=== PATIENT | female | born 1990 | race Hispanic/Latino ===

== ENCOUNTER 2017-10-19 13:46 | Inpatient (IN) | payer MEDICAID, OTHER ==
[~2017-10-19] VITALS: Ht 165.1 cm; Wt 65.3 kg
[2017-10-19 14:11] LABS: APPEARANCE,URINE Cloudy (CLEAR); BILIRUBIN,URINE Negative (NEGATIVE); COLOR,URINE Yellow (YELLOW); GLUCOSE, URINE (UA) Negative (NEGATIVE); KETONES,URINE Negative (NEGATIVE); LEUKOCYTE ESTERASE ,URINE Small (NEGATIVE); NITRATE,URINE Negative (NEGATIVE); OCCULT BLOOD,URINE Large (NEGATIVE); PH,URINE 5.5 (5.0-8.0); PROTEIN,URINE Trace (NEGATIVE); UROBILINOGEN,URINE 0.2 mg/dL (0.2-1.0)
[2017-10-19 14:15] LABS: BASOPHILS % (AUTO) 0.6 % (0.0-5.0); EOSINOPHILS % (AUTO) 2.7 % (0.0-8.0); HEMATOCRIT 43.7 % (36-48); LYMPHOCYTES % (AUTO) 29.2 % (21.0-51.0); MEAN CORPUSCULAR HEMOGLOBIN 28.2 pg (27.0-33.0); MEAN CORPUSCULAR HGB CONC 32.9 g/dL (32.0-36.0); MEAN CORPUSCULAR VOLUME 85.7 fL (79-99); MONOCYTES % (AUTO) 6.9 % (3.0-13.0); NEUTROPHILS % (AUTO) 60.6 % (40.0-77.0); PLATELET COUNT (AUTO) 233 K/uL (130-400); RED CELL DISTRIBUTION WIDTH 13.1 % (11.0-15.5); WHITE BLOOD COUNT (AUTO) 8.6 K/uL (4.8-10.8)
[2017-10-19 14:34] LABS: BACTERIA,URINE Moderate /HPF (None Seen)
[2017-10-19 14:37] LABS: TRANSITIONAL EPI CELLS,URINE Few /HPF (None Seen)
[2017-10-19 20:30] VITALS: BP 102/67
[2017-10-19] MEDS ORDERED: MEPERIDINE HCL/PF 25 MG/0.5 ML AMPUL IM PRN (21:30)
[2017-10-19] MEDS ORDERED: PROMETHAZINE HCL 25 MG/ML 1ML AMPULE IM PRN (21:30)
[2017-10-19] MEDS: SODIUM CHLORIDE 0.9% 1000ML 1,000 ML IV SCH (23:06)
[2017-10-19 23:40] VITALS: BP 101/61
[2017-10-20 03:53] VITALS: BP 102/54
[2017-10-20 06:44] LABS: HEMATOCRIT 40.2 % (36-48); MEAN CORPUSCULAR HEMOGLOBIN 28.9 pg (27.0-33.0); MEAN CORPUSCULAR HGB CONC 33.6 g/dL (32.0-36.0); PLATELET COUNT (AUTO) 252 K/uL (130-400); RED BLOOD CELL COUNT(AUTO) 4.68 MIL/uL (4.00-5.50); RED CELL DISTRIBUTION WIDTH 13.1 % (11.0-15.5); WHITE BLOOD COUNT (AUTO) 7.4 K/uL (4.8-10.8)
[2017-10-20] MEDS: SODIUM CHLORIDE 0.9% 1000ML 1,000 ML IV SCH ×2 (07:06→16:11)
[2017-10-20 07:35] VITALS: BP 104/64
[2017-10-20 11:19] VITALS: BP 102/72
[2017-10-20 15:36] VITALS: BP 90/52
[2017-10-20 19:35] VITALS: BP 95/68
[2017-10-21 00:12] VITALS: BP 93/46
[2017-10-21] MEDS ORDERED: ACETAMINOPHEN 325 MG TAB PO PRN (00:15)
[2017-10-21] MEDS: SODIUM CHLORIDE 0.9% 1000ML 1,000 ML IV SCH ×2 (00:17→07:35)
[2017-10-21 03:41] VITALS: BP 93/46
[2017-10-21 07:35] VITALS: BP 101/67
== END 2017-10-21 10:40 | disposition home or self-care (01) | DRG 782 ==
LOC: EDH 13:46 → EDHIP 13:47 → UNDOADMIN 13:47 → WSH 13:47
PROVIDERS: ADMIT Specialist; ATTEND Specialist
DX: O34.81 Maternal care for other abnormalities of pelvic organs, first trimester (principal); N83.201 Unspecified ovarian cyst, right side; Z90.721 Acquired absence of ovaries, unilateral; Z3A.01 Less than 8 weeks gestation of pregnancy
CPT/HCPCS: 36415; 76801; 76817; 81001; 84702; 85025; 85027; 86850; 86900; 86901; J7030

== ENCOUNTER 2017-10-29 06:57 | Observation (INO) | payer MEDICAID, OTHER ==
[2017-10-28 16:41] VITALS: BP 99/63
[2017-10-28 17:02] LABS: BASOPHILS % (AUTO) 0.5 % (0.0-5.0); EOSINOPHILS % (AUTO) 2.3 % (0.0-8.0); HEMATOCRIT 41.5 % (36-48); LYMPHOCYTES % (AUTO) 26.2 % (21.0-51.0); MEAN CORPUSCULAR HEMOGLOBIN 28.6 pg (27.0-33.0); MEAN CORPUSCULAR HGB CONC 33.4 g/dL (32.0-36.0); MEAN CORPUSCULAR VOLUME 85.6 fL (79-99); MONOCYTES % (AUTO) 7.3 % (3.0-13.0); NEUTROPHILS % (AUTO) 63.7 % (40.0-77.0); PLATELET COUNT (AUTO) 254 K/uL (130-400); RED BLOOD CELL COUNT(AUTO) 4.85 MIL/uL (4.00-5.50); RED CELL DISTRIBUTION WIDTH 13.5 % (11.0-15.5); WHITE BLOOD COUNT (AUTO) 9.7 K/uL (4.8-10.8)
[2017-10-29] VITALS (21 sets, daily range): BP systolic 82–119; BP diastolic 47–73
[~2017-10-29] VITALS: Ht 162.6 cm; Wt 69.2 kg
[2017-10-29] MEDS ORDERED: LIDOCAINE PF 2% 5ML ABBOJECT ONE (07:09)
[2017-10-29] MEDS ORDERED: PROPOFOL 10 MG/ML 20ML VIAL IV ONE (07:09)
[2017-10-29] MEDS ORDERED: ONDANSETRON HCL 4 MG/2 ML VIAL ONE (07:09)
[2017-10-29] MEDS ORDERED: MIDAZOLAM HCL 1 MG/ML 2ML VIAL ONE (07:09)
[2017-10-29] MEDS ORDERED: ROCURONIUM 10MG/1ML SYR 10 MG/ML ML ONE (07:10)
[2017-10-29] MEDS ORDERED: FENTANYL CITRATE PF 50 MCG/1 ML 2ML VIAL ONE ×5 (07:10→10:09)
[2017-10-29] MEDS: CEFAZOLIN SODIUM 1 GM VIAL IVP SCH ×2 (07:30→08:25)
[2017-10-29] MEDS ORDERED: LACTATED RINGERS 1000ML 1,000 ML IV ONE (07:48)
[2017-10-29] MEDS ORDERED: NEOSTIGMINE 5MG/5ML SYR IV ONE (09:25)
[2017-10-29] MEDS ORDERED: GLYCOPYRROLATE 1 MG/5 ML SYRINGE ONE (09:25)
[2017-10-29] MEDS ORDERED: MEPERIDINE-PF 25 MG/ML SYG ONE ×2 (09:44→09:53)
[2017-10-29] MEDS ORDERED: MEPERIDINE-PF 75 MG/ML SYG IM PRN (09:45)
[2017-10-29] MEDS ORDERED: MAGNESIUM SULFATE 1 GM/2 ML VIAL ONE (09:50)
[2017-10-29] MEDS ORDERED: PROMETHAZINE HCL 25 MG/ML 1ML AMPULE IM ONE (10:18)
[2017-10-29] MEDS: DEXTROSE 5 %-0.45 % NACL 1,000 ML IV PRN ×2 (11:10→18:52)
[2017-10-29] MEDS ORDERED: PROMETHAZINE HCL 25 MG/ML 1ML AMPULE IM PRN ×2 (11:45)
[2017-10-29] MEDS: ACETAMINOPHEN-CODEINE 300/30MG TAB PO PRN ×2 (15:27→18:54)
[2017-10-29] MEDS: DOCUSATE SODIUM 100 MG CAP PO PRN (21:41)
[2017-10-30 01:36] VITALS: BP 90/55
[2017-10-30] MEDS: DEXTROSE 5 %-0.45 % NACL 1,000 ML IV PRN (03:50)
[2017-10-30 05:10] VITALS: BP 94/60
[2017-10-30 06:41] LABS: HEMATOCRIT 37.8 % (36-48); MEAN CORPUSCULAR HGB CONC 32.5 g/dL (32.0-36.0); MEAN CORPUSCULAR VOLUME 86.3 fL (79-99); PLATELET COUNT (AUTO) 224 K/uL (130-400); RED BLOOD CELL COUNT(AUTO) 4.38 MIL/uL (4.00-5.50); RED CELL DISTRIBUTION WIDTH 13.1 % (11.0-15.5); WHITE BLOOD COUNT (AUTO) 12.9 K/uL (4.8-10.8)
[2017-10-30 07:51] VITALS: BP 88/49
[2017-10-30] MEDS ORDERED: ACETAMINOPHEN-CODEINE 300/30MG TAB ONE (08:24)
[2017-10-30] MEDS: ACETAMINOPHEN-CODEINE 300/30MG TAB PO PRN (08:30)
[2017-10-30] MEDS ORDERED: IBUPROFEN 800 MG TAB ONE (09:29)
[2017-10-30] MEDS ORDERED: DOCUSATE SODIUM 100 MG CAP PO ONE (09:29)
[2017-10-30] MEDS: DOCUSATE SODIUM 100 MG CAP PO PRN (09:30)
[2017-10-30] MEDS ORDERED: IBUPROFEN 800 MG TAB PO SCH (09:45)
[2017-10-30 11:14] VITALS: BP 93/55
== END 2017-10-30 15:15 | disposition home or self-care (01) ==
LOC: DAH 06:57 → WSH 06:58 → UNDOFXSDCACCOM 10:55 → DAH 10:55 → UNDOFXSDCSVC 10:55 → WSH 10:55 → DAH 10:56 → WSH 10:56 → UNDOADMOB 10-30 06:57 → WSH 10-30 06:57 → UNDODISOB 10-30 15:15
PROVIDERS: ADMIT Specialist; ATTEND Specialist
DX: O20.8 Other hemorrhage in early pregnancy (principal); Z3A.11 11 weeks gestation of pregnancy
CPT/HCPCS: 36415 ×2; 59121; 85025; 85027; 86850; 86900; 86901; 88305; 96372 ×2; A4218; G0378 ×32; J0690; J2001; J2175 ×3; J2250; J2405; J2550 ×3; J2704; J2710; J3010 ×5; J3475; J3490; J7120

== ENCOUNTER 2022-01-28 03:17 | Emergency (ER) | payer MEDICAID, OTHER ==
[~2022-01-28] VITALS: Ht 154.9 cm; Wt 49.9 kg
[2022-01-28] MEDS ORDERED: 0.9%NACL 1000ML 2,000 ML IV ONE (04:00)
[2022-01-28 04:26] LABS: BASOPHILS % (AUTO) 0.5 % (0.0-5.0); EOSINOPHILS % (AUTO) 2.6 % (0.0-8.0); HEMATOCRIT 42.2 % (36-48); MEAN CORPUSCULAR HEMOGLOBIN 27.5 pg (27.0-33.0); MEAN CORPUSCULAR HGB CONC 32.7 g/dL (32.0-36.0); MEAN CORPUSCULAR VOLUME 84.2 fL (79-99); MONOCYTES % (AUTO) 7.4 % (3.0-13.0); NEUTROPHILS % (AUTO) 61.1 % (40.0-77.0); PLATELET COUNT (AUTO) 282 K/uL (130-400); RED BLOOD CELL COUNT(AUTO) 5.01 MIL/uL (4.00-5.50); RED CELL DISTRIBUTION WIDTH 14.1 % (11.0-15.5); WHITE BLOOD COUNT (AUTO) 9.6 K/uL (4.8-10.8)
[2022-01-28 04:27] LABS: APPEARANCE,URINE CLEAR (CLEAR); BILIRUBIN,URINE NEGATIVE (NEGATIVE); COLOR,URINE COLORLESS (YELLOW); GLUCOSE, URINE (UA) NEGATIVE (NEGATIVE); KETONES,URINE NEGATIVE (NEGATIVE); LEUKOCYTE ESTERASE ,URINE NEGATIVE Leu/uL (NEGATIVE); NITRATE,URINE NEGATIVE (NEGATIVE); PH,URINE 6.5 (5.0-8.0); PROTEIN,URINE NEGATIVE (NEGATIVE); UROBILINOGEN,URINE 0.2 mg/dL (0.2-1.0)
[2022-01-28 04:34] LABS: CREATININE 0.7 mg/dL (0.5-1.5); POTASSIUM 3.5 mmol/L (3.5-5.1)
[2022-01-28 04:39] LABS: ALBUMIN 3.5 g/dL (3.5-5.0); TOTAL PROTEIN, SERUM 6.7 g/dL (6.0-8.3)
[2022-01-28 05:36] LABS: RBC,URINE 0-1 /HPF (0-1); SQUAMOUS EPITHELIAL CELL,UR RARE /HPF (0-2); WBC,URINE 0-1 /HPF (0-1)
[2022-01-28 06:44] VITALS: BP 112/62
== END 2022-01-28 06:53 | disposition home or self-care (01) ==
LOC: EDH 03:17
DX: R42 Dizziness and giddiness (principal); R00.2 Palpitations
CPT/HCPCS: 99283; 96360; 84484; 80053; 85025; 81001; 36415; J7030